=== PATIENT | male | born 1935 | race Caucasian/White ===

== ENCOUNTER 2017-03-23 18:29 | Emergency (ER) | payer SELFPAY ==
[~2017-03-23] VITALS: Ht 170.2 cm; Wt 56.5 kg
[2017-03-23 18:47] VITALS: Ht 170.2 cm; Wt 56.5 kg
--- NOTE | 2017-03-23 21:23 | ERD ---
ER Documentation Chief Complaint Chief Complaint right great toe x2 weeks. Denies injury. HPI 82-year-old male presents emergency department for right great toe pain for about 2 weeks. Stated that he might have accidentally stepped on a sharp object that caused a punctured wound to the plantar area or volar area of his right great toe. Denies headache, head injury, neck pain, throat pain, difficulty swallowing, shoulder pain, chest pain, back pain, abdomen, nausea, vomiting, constipation, diarrhea, urinary symptoms, loss of bowel and bladder control, changes in bowel bladder habits, calf pain, recent long travel, recent travel, recent exposure to any illness, recent antibiotic use in the last 3 months, fever, chills. Denies any past medical history. No surgical history. ROS All systems reviewed and are negative except as per history of present illness. Medications Home Meds Active Scripts Acetaminophen* (Tylophen*) 500 Mg Capsule, 1 CAP PO Q6H Y for PAIN AND OR ELEVATED TEMP, #20 CAP Prov:PASILABAN,KLAR F 03/23/17 Cephalexin* (Keflex*) 500 Mg Capsule, 500 MG PO QID for 5 Days, CAP Prov:PASILABAN,KLAR F 03/23/17 Allergies Allergies: Coded Allergies: No Known Allergy (Unverified , 03/23/17) Physical Exam Vitals Vital Signs Date Time Temp Pulse Resp B/P Pulse Ox O2 Delivery O2 Flow Rate FiO2 03/23/17 18:47 98.8 89 18 137/60 96 Physical Exam Const: Well-appearing. Not in acute respiratory distress. Head: Atraumatic Eyes: Normal Conjunctiva ENT: Normal External Ears, Nose and Mouth. Neck: Full range of motion..~ No meningismus. Resp: Clear to auscultation bilaterally Cardio: Regular rate and rhythm, no murmurs Abd: Soft, non tender, non distended. Normal bowel sounds Skin: No petechiae or rashes Back: No midline or flank tenderness. Ext: No cyanosis, or edema. Has good and full range of motion right great toe. Right great big toe has a punctured wound distally to the plantar area. No bleeding. No discharge. Right ankle is unremarkable. Right knee is unremarkable. No neurovascular deficits. Neur: Awake and alert. Psych: Normal Mood and Affect Results 24 hrs Current Medications Medications (Trade) Dose Ordered Sig/Stacy Route PRN Reason Start Time Stop Time Status Last Admin Dose Admin Diphtheria/ Tetanus/Acell Pertussis (Adacel) 0.5 ml ONCE ONCE IM* 03/23/17 21:30 03/23/17 21:31 DC 03/23/17 21:50 Acetaminophen/ Hydrocodone Bitart ([place] (5/325)) 1 tab ONCE ONCE PO 03/23/17 21:30 03/23/17 21:31 DC 03/23/17 21:50 Procedures/MDM X-rays of the right foot: Negative for evidence of acute abnormality involving the right foot. Negative for evidence of osteomyelitis or radiopaque foreign body. Treatment: Wound cleansing. Adacel IM. Dressing was applied. Reevaluation: Denies pain. Ambulatory with steady gait. No neurovascular deficits. Differential diagnosis: I have low suspicion for septic joint, septic joint arthritis, cellulitis, osteomyelitis, sepsis, severe bacterial infection given the patient vital signs is unremarkable, and by physical examination. Final diagnosis: Punctured wound. Prescription: Keflex. Tylenol. Tramadol. Follow-up with PCP in the next 3-4 days. Come back here in the emergency department for any new symptoms or any worsening symptoms. All questions and concerns are answered. Patient and family member verbalized understanding and agreed with the plan of care Hemodynamically stable on discharge. Departure Diagnosis: Primary Impression: Pain of toe Additional Impression: Puncture wound Condition: Stable Additional Instructions: Follow-up with PCP in the next 3-4 days. Come back here in the emergency department for any new symptoms or any worsening symptoms. All questions and concerns are answered. Patient and family member verbalized understanding and agreed with the plan of care ANAHY SHEN Mar 23, 2017 21:23
[2017-03-23] MEDS ORDERED: DIPHTH/TET/ACEL PERTUSS (ADULT) 0.5 ML VIAL IM* ONE (21:30)
[2017-03-23] MEDS ORDERED: HYDROCODONE/APAP (5/325) TAB PO ONE (21:30)
--- NOTE | 2017-03-23 22:56 | RADRPT ---
AMENDMENT: 03/23/2017 11:13:49 PM Missy Lemon M.d Right foot was imaged. Left foot was not imaged. Please see the updated report below. PROCEDURE: XR Foot. CLINICAL INDICATION: 82 years of age, male. Puncture wound right great toe. TECHNIQUE: Three views of the right foot. COMPARISON: None available. FINDINGS: Negative for evidence of acute fracture. Normal alignment on this non-weight bearing view. Negative for significant soft tissue swelling. Negative for evidence of radiopaque foreign body. Additional comment: None. IMPRESSION: Negative for evidence of an acute abnormality involving the right foot. Negative for evidence of ost eomyelitis or radiopaque foreign body. PROCEDURE: XR Foot. CLINICAL INDICATION: 82 years of age, male. Puncture wound. Although the clinical history indicates the wound is to the right great toe, the left foot was imaged. TECHNIQUE: Three views of the left foot. COMPARISON: None available. FINDINGS: Negative for evidence of acute fracture. Normal alignment on this non-weight bearing view. Negative for significant soft tissue swelling. Negative for evidence of radiopaque foreign body. Additional comment: None. IMPRESSION: Negative for evidence of acute fracture or dislocation of the left foot. Please note that the reques t was for imaging of the right foot. It is unclear if the radiograph is mislabeled or if the wrong f oot was imaged. Findings were discussed with Dr. Acuna by Dr. Missy Lemon on March 23, 2017 at 10:50 p.m. RPTAT: [facility]CTS Physician Sully Date Time Electronically viewed and signed by Physician Sully on 03/23/2017 23:14 /
[2017-03-23] MEDS ORDERED: CEPH-443 PO (23:40)
[2017-03-23] MEDS ORDERED: ACET500C5 PO (23:41)
== END 2017-03-23 23:48 | disposition home or self-care (01) ==
LOC: FTE 18:29
DX: S91.131A Puncture wound without foreign body of right great toe without damage to nail, initial encounter (principal); W45.8XXA Other foreign body or object entering through skin, initial encounter; Y92.9 Unspecified place or not applicable; Z23 Encounter for immunization
CPT/HCPCS: 73630; 90471; 90715